=== PATIENT | female | born 1985 ===

== ENCOUNTER 2018-02-04 16:20 | Emergency (ER) | payer SELFPAY ==
[2018-02-04 16:20] VITALS: BMI 60.0
[2018-02-04 16:45] VITALS: BP 145/85; PULSE 93; RESP 20; TEMP 98.4; O2SAT 99
[2018-02-04] MEDS ORDERED: Acetaminophen-Codeine 300/30 mg Tab PO STA (16:55)
[2018-02-04] MEDS ORDERED: Acetaminophen-Codeine 300/30 mg Tab PO ONE (17:04)
--- NOTE | 2018-02-04 17:30 | C.PDOC ---
History Of Present Illness 32 year old female presents to the ED for evaluation of right shoulder pain which began after she sustained a fall 3 days ago. Patient notes she was getting out of the shower when she slipped on the wet floor and fell onto her shoulder. She denies head trauma, LOC, chest pain, shortness of breath, changes in sensation. Time Seen by Provider: 02/04/18 16:39 Chief Complaint (Nursing): Upper Extremity Problem/Injury History Per: Patient, Nephrologist (LORRAINE Newton) History/Exam Limitations: no limitations Onset/Duration Of Symptoms: Hrs Current Symptoms Are (Timing): Still Present Quality: "Pain" Additional History Per: Patient Past Medical History Reviewed: Historical Data, Nursing Documentation, Vital Signs Vital Signs: Last Vital Signs Temp 98.4 F 02/04/18 16:40 Pulse 93 H 02/04/18 16:40 Resp 20 02/04/18 16:40 BP 145/85 02/04/18 16:40 Pulse Ox 99 02/04/18 19:55 - Medical History PMH: Asthma Surgical History: No Surg Hx Family History: States: Unknown Family Hx - Social History Hx Alcohol Use: No Hx Substance Use: No - Immunization History Hx Tetanus Toxoid Vaccination: No Hx Influenza Vaccination: No Hx Pneumococcal Vaccination: No Review Of Systems Cardiovascular: Negative for: Chest Pain Respiratory: Negative for: Shortness of Breath Musculoskeletal: Positive for: Shoulder Pain (right) Neurological: Negative for: Weakness, Numbness Physical Exam - Physical Exam Appears: Non-toxic, No Acute Distress Skin: Warm, Dry, Ecchymosis (to proximal aspect of right upper arm ) Head: Atraumatic, Normacephalic Eye(s): bilateral: Normal Inspection, EOMI Nose: Normal Oral Mucosa: Moist Neck: Normal ROM, Supple Chest: Symmetrical, No Deformity, No Tenderness Cardiovascular: Rhythm Regular Respiratory: Normal Breath Sounds, No Rales, No Rhonchi, No Wheezing Extremity: No Normal ROM (decreased secondary to pain ), Tenderness (to anterior aspect of right shoulder ), Capillary Refill (less than 2 seconds ), No Deformity, No Swelling Neurological/Psych: Oriented x3, Normal Speech, Normal Cognition, Normal Sensation Gait: Steady ED Course And Treatment O2 Sat by Pulse Oximetry: 99 (on RA) Pulse Ox Interpretation: Normal Progress Note: Right humerus and right shoulder XR ordered. XR results show no fracture or dislocation. Tylenol/Codeine PO administered. On re-examination, patient is resting comfortably, showing no signs of distress and reports an improvement in her symptoms. Shoulder sling applied by instrument and control technician . Patient is advised to f/u with orthopedic care within 1-2 days for further evaluation. Disposition - Disposition Referrals: Piter Evans III, MD [Staff Provider] - Disposition: HOME/ ROUTINE Disposition Time: 17:28 Condition: STABLE Additional Instructions: Rest and ice the area. Follow up with your primary medical doctor or clinic in 2 -5 days for further evaluation. Return to the emergency department at any time if symptoms persist or worsen. Prescriptions: Naproxen [Naprosyn] 1 tab PO BID PRN #20 tab PRN Reason: Pain Instructions: Shoulder Sprain Forms: [employer] (T[place]ian) Print Language: [place]LAND[place] - Clinical Impression Clinical Impression: Shoulder contusion - PA / REPOSSESSOR / Resident Statement MD/DO has reviewed & agrees with the documentation as recorded. - Scribe Statement The provider has reviewed the documentation as recorded by the Scribe (Anastasiya Harris) All medical record entries made by the Scribe were at my direction and personally dictated by me. I have reviewed the chart and agree that the record accurately reflects my personal performance of the history, physical exam, medical decision making, and the department course for this patient. I have also personally directed, reviewed, and agree with the discharge instructions and disposition.
--- NOTE | 2018-02-05 09:52 | RAD ---
PROCEDURE: Radiographs of the Right Shoulder HISTORY: Trauma COMPARISON: Correlation made with concurrent radiographs right humerus FINDINGS: BONES: No evidence of acute displaced fracture nor dislocation. JOINTS: Normal. Glenohumeral and acromioclavicular joints preserved. No osteoarthritis. SOFT TISSUES: Normal. OTHER FINDINGS: None. IMPRESSION: No evidence of acute displaced fracture nor dislocation. .
--- NOTE | 2018-02-05 11:47 | RAD ---
PROCEDURE: Radiographs of the right humerus. HISTORY: trauma COMPARISON: Correlation made with concurrent radiographs right shoulder FINDINGS: BONES: Normal. No fracture or focal lesion. SOFT TISSUES: Normal. OTHER FINDINGS: None. IMPRESSION: Normal radiographs of right humerus.
== END 2018-02-04 17:39 | disposition home or self-care (01) ==
LOC: C.ER 16:20
DX: S40.011A Contusion of right shoulder, initial encounter (principal); W18.2XXA Fall in (into) shower or empty bathtub, initial encounter; Y93.E1 Activity, personal bathing and showering; Y92.002 Bathroom of unspecified non-institutional (private) residence as the place of occurrence of the external cause

== ENCOUNTER 2018-09-09 13:38 | Emergency (ER) | payer SELFPAY ==
[2018-09-09 13:50] VITALS: BMI 58.1
[2018-09-09 14:35] LABS: HCG,QUALITATIVE URINE POSITIVE (NEGATIVE)
[2018-09-09 14:42] LABS: SQUAMOUS EPITHIAL 4 /hpf (0-5); URINE BILIRUBIN NEGATIVE (NEGATIVE); URINE BLOOD 3+ (NEGATIVE); URINE CLARITY Clear (Clear); URINE COLOR Yellow (YELLOW); URINE GLUCOSE (UA) NORMAL (Normal); URINE LEUKOCYTE ESTERASE TRACE Leu/uL (Negative); URINE PROTEIN 1+ mg/dL (NEGATIVE)
[2018-09-09 15:04] LABS: BASO % 0.3 % (0.0-2.0); EOS # 0.2 K/uL (0.0-0.7); EOS % 1.4 % (0.0-4.0); HEMOGLOBIN 11.1 g/dL (11.0-16.0); LYMPH # 3.1 K/uL (1.0-4.3); LYMPH % 23.8 % (20.0-40.0); MEAN CELL VOLUME 84.2 fL (81.0-99.0); MEAN CORPUSCULAR HEMOGLOBIN 26.9 pg (27.0-31.0); MEAN CORPUSCULAR HGB CONC 31.9 g/dL (33.0-37.0); MEAN PLATELET VOLUME 7.9 fL (7.2-11.7); MONO # 0.7 K/uL (0.0-0.8); MONO % 5.5 % (0.0-10.0); NEUT # 9.1 K/uL (1.8-7.0); NRBC % 0.1 % (0.0-2.0); RBC 4.12 Mil/uL (3.80-5.20); RED CELL DISTRIBUTION WIDTH 14.5 % (11.5-14.5); WHITE BLOOD COUNT 13.2 K/uL (4.8-10.8)
[2018-09-09 15:22] LABS: BLOOD UREA NITROGEN 15 mg/dL (7-17); CALCIUM 9.1 mg/dl (8.6-10.4); GFR NON-AFRICAN AMERICAN > 60
--- NOTE | 2018-09-09 16:34 | US ---
Date of service: 09/09/2018 PROCEDURE: OB Pelvic Ultrasound HISTORY: VB RO ECTOPIC LMP: 07/16/2018 COMPARISON: None available. FINDINGS: UTERUS: Gestational sac: 14 mm equivalent to 5 weeks 5 days gestational age. [place]-rump length 10 mm equivalent to 7 weeks 1 day Heart rate: 146 bpm. age (Ultrasound estimated): 6 weeks 3 days [place]-gestational hemorrhage: None. Date of delivery (Ultrasound estimated) : 05/02/2019 Uterus measures 9.7 x 6.5 x 7.3. Small fundal uterine fibroid, 1.4 by 0.8 x 1.2 cm. CERVIX: Measures 3.3 cm. Long and closed. No cervical abnormality seen. RIGHT OVARY: Measures 2.4 x 1.6 x 2.5 cm. No mass lesion. Normal flow. LEFT OVARY: Measures 3.7 x 3.0 x 2.8 cm. No solid mass. Normal flow. Two physiologic cysts, 2.0 and 0.9 cm. FREE FLUID: Small amount of free fluid noted in cul-de-sac OTHER FINDINGS: None. IMPRESSION: Single live intrauterine gestation of approximately 6 weeks 3 days. No subchorionic hemorrhage. Incidental 14 mm fundal uterine fibroid. Cervix closed. Minimal fluid in cul-de-sac common nonspecific.
--- NOTE | 2018-09-09 16:40 | C.PDOC ---
History Of Present Illness Patient is a 33 year old female who presents to the ED c/o vaginal bleeding since the morning. Patient denies CP, SOB, nausea, vomiting, diarrhea, or any other medical complaints at the moment. Time Seen by Provider: 09/09/18 14:27 Chief Complaint (Nursing): Female Genitourinary History Per: Patient History/Exam Limitations: no limitations Onset/Duration Of Symptoms: Hrs (morning ) Current Symptoms Are (Timing): Still Present Associated Symptoms: denies: Nausea, Vomiting, Diarrhea Recent travel outside of the [place]: No Additional History Per: Patient Abnormal Vaginal Bleeding: Yes : 2 Para: 1 Past Medical History Reviewed: Historical Data, Nursing Documentation, Vital Signs - Medical History PMH: Asthma Surgical History: No Surg Hx Family History: States: Unknown Family Hx - Social History Hx Alcohol Use: No Hx Substance Use: No - Immunization History Hx Tetanus Toxoid Vaccination: No Hx Influenza Vaccination: No Hx Pneumococcal Vaccination: No Review Of Systems Except As Marked, All Systems Reviewed And Found Negative. Cardiovascular: Negative for: Chest Pain Respiratory: Negative for: Shortness of Breath Gastrointestinal: Negative for: Nausea, Vomiting, Diarrhea Genitourinary: Positive for: Vaginal Bleeding Physical Exam - Physical Exam Appears: Non-toxic, No Acute Distress Skin: Normal Color, Warm, Dry Head: Atraumatic, Normacephalic Oral Mucosa: Moist Neck: Normal ROM, Supple Chest: Symmetrical, No Deformity Cardiovascular: Rhythm Regular, No Murmur Respiratory: Normal Breath Sounds, No Rales, No Rhonchi, No Wheezing Gastrointestinal/Abdominal: Soft, No Tenderness, No Guarding, No Rebound Neurological/Psych: Oriented x3 ED Course And Treatment - Laboratory Results Result Diagrams: 09/09/18 14:58 09/09/18 14:58 Lab Results: Urine Color Yellow (YELLOW) 09/09/18 14:28 Urine Clarity Clear (Clear) 09/09/18 14:28 Urine pH 6.0 (5.0-8.0) 09/09/18 14:28 Ur Specific [place] 1.026 (1.003-1.030) 09/09/18 14:28 Urine Protein 1+ mg/dL (NEGATIVE) H 09/09/18 14:28 Urine Glucose (UA) Normal mg/dL (Normal) 09/09/18 14:28 Urine Ketones Negative mg/dL (NEGATIVE) 09/09/18 14:28 Urine Blood 3+ (NEGATIVE) H 09/09/18 14:28 Urine Nitrate Negative (NEGATIVE) 09/09/18 14:28 Urine Bilirubin Negative (NEGATIVE) 09/09/18 14:28 Urine Urobilinogen 2.0 mg/dL (0.2-1.0) H 09/09/18 14:28 Ur Leukocyte Esterase Trace Shruthi/uL (Negative) 09/09/18 14:28 Urine WBC (Auto) 6 /hpf (0-5) H 09/09/18 14:28 Urine RBC (Auto) 392 /hpf (0-3) H 09/09/18 14:28 Ur Squamous Epith Cells 4 /hpf (0-5) 09/09/18 14:28 Urine HCG, Qual Positive (NEGATIVE) 09/09/18 14:28 Beta HCG, Quant [id number] mIU/ML 09/09/18 14:58 Urine HCG, Qual Positive (NEGATIVE) 09/09/18 14:28 - CT Scan/US TRANSVAG US Other Rad Studies (CT/US): Radiology Report Reviewed (Single live intrauterine gestation of approximately 6 weeks 3 days. No subchorionic hemorrhage. Incidental 14 mm fundal uterine fibroid. Cervix closed. Minimal fluid in cul-de-sac common nonspecific.) Progress Note: Plan: Bloodwork, Urine Culture, HCG, Urinalysis, US OB Disposition Counseled Patient/Family Regarding: Studies Performed, Diagnosis, Need For Followup - Disposition Referrals: [facility] [Outside] [facility] [Outside] [facility] [Outside] Disposition: HOME/ ROUTINE Disposition Time: 16:40 Condition: GOOD Instructions: Threatened Miscarriage (DC) Forms: Work/School/Gym Excuse, [employer] [facility] (Citizen [place]) Print Language: LATVIAN - Clinical Impression Clinical Impression: Threatened - Scribe Statement The provider has reviewed the documentation as recorded by the Caylaibnirali Addison All medical record entries made by the Scribe were at my direction and personally dictated by me. I have reviewed the chart and agree that the record accurately reflects my personal performance of the history, physical exam, medical decision making, and the department course for this patient. I have also personally directed, reviewed, and agree with the discharge instructions and disposition.
[2018-09-09 16:59] VITALS: BP 127/77; PULSE 78; RESP 16; O2SAT 100
== END 2018-09-09 16:58 | disposition home or self-care (01) ==
LOC: C.ER 13:38
DX: O20.0 Threatened abortion (principal); Z3A.01 Less than 8 weeks gestation of pregnancy